=== PATIENT | female | born 1960 | race Asian ===

== ENCOUNTER → 2016-07-27 | Outpatient (CLI) | payer OTHER ==
--- NOTE | 2016-07-27 17:08 | DX ---
DEXA Bone Mineral Densitometry Clinical Indications: Postmenopausal at age 48. Osteopenia. Follow-up. Comparison: May 2014 Technique: Bone Mineral Densitometry (BMD) by Dual Energy X-Ray Absorptiometry (DEXA) was performed utilizing the magnetU scanner. The lumbar spine was evaluated in the AP projection. The bilat eral hips and forearm were evaluated in the AP projection. Vertebral fracture assessment was also pe rformed. AP Lumbar Spine: The L1, L2, L3 and L4 vertebral bodies were evaluated. BMD: 0.937 gm/cm2 T-score: -2.1 SD Z-score: -0.7 SD 3% decrease AP left Hip: Neck BMD: 0.780 gm/cm2 T-score: -1.9 SD Z-score: -0.5 SD 3% decrease AP right Hip: Neck BMD: 0.797 gm/cm2 T-score: -1.7 SD Z-score: -0.4 SD 4% decrease AP left Forearm, 07/10: BMD: 0.809 gm/cm2 T-score: -0.8 SD Z-score: 0.0 SD 3% decrease Vertebral Fracture Assessment: No significant fracture deformity. Conclusion: Considering the lowest measured site, the patient is osteopenic. The ten year risk for any major osteoporotic fracture is 14.2% and for a hip fracture is 1.8%. Any bone loss in this patient is probably related to aging or estrogen deficiency. To prevent osteoporosis and to promote bone density, consider the following recommendations: 1. Pursue a regular regimen of weightbearing and muscle strengthening exercises in order to reduce t he risk of falls and fracture (as tolerated by the patient's general medical condition). 2. Ensure that total daily calcium intake is at least 1500 mg (diet plus supplements). 3. Check serum hydroxy vitamin D3 (normal >30ng/ml). 4. Ensure daily intake of vitamin D is 800 international units. 5. Consider follow-up DEXA scan in two years to assess the rate of bone loss in this patient. 6. Consider excluding common secondary causes of bone loss. Laboratory evaluation might include CBC , TSH, calcium, phosphorous, albumin, creatinine, alkaline phosphatase, PTH, serum, electrophoresis ( SPEP or UPEP), and antitissue transglutaminase antibody levels (celiac disease), and hydroxy vitamin D3, as well as a 24-hour urine calcium.
== END ==
LOC: FIMAGING 14:02
PROVIDERS: ATTEND Internal Medicine
DX: M85.80 Other specified disorders of bone density and structure, unspecified site (principal); Z78.0 Asymptomatic menopausal state

== ENCOUNTER → 2017-05-16 | Outpatient (CLI) | payer OTHER | LOC: FIMAGING 14:51 | PROVIDERS: ATTEND Obstetrics & Gynecology Gynecology | DX: Z12.31 Encounter for screening mammogram for malignant neoplasm of breast (principal) | CPT/HCPCS: G0202 ==

== ENCOUNTER → 2017-05-22 | Outpatient (CLI) | payer OTHER | LOC: FIMAGING 13:55 | PROVIDERS: ATTEND Internal Medicine Gastroenterology | DX: R10.9 Unspecified abdominal pain (principal) | CPT/HCPCS: A9512 ==

== ENCOUNTER → 2017-07-17 | Outpatient (CLI) | payer OTHER | LOC: BMCIMAGING 15:39 | PROVIDERS: ATTEND Internal Medicine | DX: R63.4 Abnormal weight loss (principal) ==

== ENCOUNTER → 2018-01-31 | Outpatient (CLI) | payer OTHER | LOC: FIMAGING 09:16 | PROVIDERS: ATTEND Internal Medicine | DX: R10.11 Right upper quadrant pain (principal); K87 Disorders of gallbladder, biliary tract and pancreas in diseases classified elsewhere ==

== ENCOUNTER → 2018-05-20 | Outpatient (CLI) | payer OTHER | LOC: FIMAGING 13:09 | PROVIDERS: ATTEND Obstetrics & Gynecology Gynecology | DX: Z12.31 Encounter for screening mammogram for malignant neoplasm of breast (principal) ==

== ENCOUNTER → 2018-08-11 | Outpatient (CLI) | payer OTHER | LOC: FIMAGING 09:03 | PROVIDERS: ATTEND Internal Medicine | DX: R10.9 Unspecified abdominal pain (principal); K56.609 Unspecified intestinal obstruction, unspecified as to partial versus complete obstruction | CPT/HCPCS: 78264; A9541 ==

== ENCOUNTER → 2018-08-13 | Outpatient (CLI) | payer OTHER | LOC: FIMAGING 12:20 | PROVIDERS: ATTEND Internal Medicine | DX: K56.609 Unspecified intestinal obstruction, unspecified as to partial versus complete obstruction (principal) | CPT/HCPCS: 78227; A9537 ==

== ENCOUNTER → 2018-10-09 | Outpatient (CLI) | payer OTHER | LOC: FIMAGING 12:24 | PROVIDERS: ATTEND Internal Medicine | DX: M81.0 Age-related osteoporosis without current pathological fracture (principal); M85.89 Other specified disorders of bone density and structure, multiple sites ==